=== PATIENT | female | born 1975 | race Caucasian/White ===

== ENCOUNTER 2017-08-28 08:40 | Day surgery (SDC) | payer OTHER ==
[2017-07-27 17:34] VITALS: BMI 30.2
[2017-08-28 10:35] LABS: HEMOGLOBIN 13.6 g/dL (12.0-16.0); MEAN CELL VOLUME 83.2 fl (81.0-99.0); MEAN CORPUSCULAR HEMOGLOBIN 28.7 pg (27.0-31.0); MEAN CORPUSCULAR HGB CONC 34.5 g/dL (33.0-37.0); RBC 4.74 Mil/uL (3.80-5.20); RED CELL DISTRIBUTION WIDTH 13.9 % (11.5-14.5); WHITE BLOOD COUNT 8.1 K/uL (4.8-10.8)
[2017-08-28] MEDS ORDERED: Silver Nitrate Topical - Stick ONE (16:44)
[2017-08-28] MEDS ORDERED: Clindamycin 600mg/50ml NS 600 MG/50 ML BAG IVPB ONE (16:44)
[2017-08-28] MEDS ORDERED: Bupivacaine 0.5% Inj(30mL) ONE (16:44)
[2017-08-28] MEDS ORDERED: Lidocaine 4% (Laryng-O-Jet) Kit MM ONE (16:52)
[2017-08-28] MEDS ORDERED: Propofol 10 mg/ml Inj (20 ML) ONE (16:52)
[2017-08-28] MEDS ORDERED: Succinylcholine 200 mg/10 ml Inj IV ONE ×2 (16:52→16:57)
[2017-08-28] MEDS ORDERED: Midazolam 2 MG/2 ML VIAL ONE (16:52)
[2017-08-28] MEDS ORDERED: Lidocaine 1% 5ml Abboject IV ONE (16:53)
[2017-08-28] MEDS ORDERED: Rocuronium 10 mg/ml (5 ml) ONE (16:55)
[2017-08-28] MEDS ORDERED: Neostigmine 1:1000 (1 mg/ml) Inj ONE (16:57)
[2017-08-28] MEDS ORDERED: Dexamethasone 4 mg/1 ml ONE (16:59)
[2017-08-28] MEDS ORDERED: Lactated Ringer's 1,000 ML IV ONE ×3 (17:38→19:10)
[2017-08-28] MEDS ORDERED: HYDROmorphone 0.5 mg/0.5 ml ISec IVP PRN (19:15)
[2017-08-28] MEDS ORDERED: Oxycodone/Acetaminophen 5/325 mg Tab PO PRN (19:41)
[2017-08-28] MEDS ORDERED: Lactated Ringer's 1,000 ML IV SCH (20:00)
[2017-08-29 00:31] VITALS: BP 123/75; PULSE 94; RESP 20; TEMP 98.9; O2SAT 97
--- NOTE | 2017-09-02 13:48 | PCM.OP ---
Operative Report - Operative Report Date of Surgery/Procedure: 08/28/17 Time of Surgery/Procedure: 14:00 Surgeon: Dr. Tomi Wheatley Audience Coordinator: Dr. Arnol Lemos Anesthesia/Sedation: general/Dr. Ho Pre-Operative Diagnosis: abdominal p[ain and endometriosis Post-Operative Diagnosis: same Indication for Surgery: as above Operative Findings: aas above Procedure/Operation Description: 1-Appendectomy. Breif History: This is a 42 year old woman already brought to the operating room by Dr. Lemos when he requested an intraoperative consultation from general surgery for intestinal involvement. Description of the Procedure: The robotic procedure has already been initated by Dr. Lemos (separate dictation). After taking control of the robotic console the appendix was retracted anteriorly and with monopolar the mesnetery was dessicated with the appendiceal artery. The base was then auxnz8g with multiple 3-0 PDS loop sutures and transected. The specimen was sent to apthology separatetly. The operation was then tunred back to Dr. Lemos ( separate dictation). Estimated Blood Loss: 2 cc Complications: none Specimen: appendix Discharge & Condition: stable
--- NOTE | 2017-09-03 14:21 | OP ---
PROCEDURE DATE: 08/28/2017 PREOPERATIVE DIAGNOSES: Pelvic pain, dysmenorrhea, dyspareunia, and rule out endometriosis. POSTOPERATIVE DIAGNOSES: Pelvic pain, dysmenorrhea, dyspareunia, and rule out endometriosis. PROCEDURE PERFORMED: Cystoscopy with bilateral ureteral catheterization, injection of dye, hysteroscopy diagnostic robotic, da Parag laparoscopy, excision of endometriosis, and bilateral ureterolysis. SURGEON: Arnol Lemos MD FIGURE CLERK: Assisted by Tomi Wheatley MD COMPLICATIONS: None. ESTIMATED BLOOD LOSS: Minimal. SPECIMEN: Samples from left ureteral, left cul-de-sac, right periureteral and anterior rectal endometriosis into samples. INDICATIONS FOR THE PROCEDURE: The patient is a 42-year-old female with a history of endometriosis and multiple procedures. She had persistent symptomatology. She was counseled with regards to risks and benefits of the procedure and she signed the consent and was taken to the operating room. DESCRIPTION OF PROCEDURE: After adequate anesthesia was obtained, the patient was placed in dorsal lithotomy position. She was prepped and draped, the surgeon gotten a glove. Extreme care was make sure the patient, it was padded in any areas prone to compression and that her hips were not either hyperextended or hyperflexed throughout the procedure. At this point, a time out was taken according to hospital policy and the procedure was started. A cystoscope was inserting to the urethra into the bladder. The bladder was distended with 200 mL of clear saline and the bladder was visualized, it appeared to be normal in size with no evidence of tumors or lesions. Both ureteral ostia were in the normal anatomical position. At this point, the left ureteral ostia was cannulated with a 5-Portuguese open-ended catheter all the way to the distal ureter and 5 mL of IC-Green was injected. Similarly, the contralateral size was also catheterized all the way to the distal ureter and 5 mL of IC-Green were also injected. The catheters were removed. The cystoscope was removed and a 16-Portuguese Murrell was inserted into the bladder. At this point, attention was on the vaginal area where a speculum was placed in the vagina. The anterior lip of the cervix was grasped. The cervix was gently dilated and the hysteroscope was inserted into the uterine cavity revealing absence of tumors, fibroids, polyps or any evidence of endometritis. At this point, attention was on the abdomen where an open laparoscopy was performed according standard technique by making incision on the skin and entering the fascia sharply into the peritoneum in a blunt fashion. At this point, a robotic cannula was inserted, the abdomen insufflated, then under direct visualization, three additional port were inserted left upper quadrant, left mid quadrant 5 mm and right upper quadrant. The [employer] robot was then docked according to standard procedure. At this point, the procedure started, the pelvis had clear evidence of inflammatory lesions and hemorrhagic lesions extended throughout the posterior peritoneal cavity. Attention was turned first on the left hand side of the pelvis where the peritoneum was entered and the retroperitoneal space was entered. The left ureter was progressively dissected laterally, endoperitoneal medially excising a large swath of peritoneum that extended from the upper part of the ovarian fossa all the way down to the uterosacral ligament on the left hand side. At this point, attention was on the posterior cul-de-sac where after elevating the uterus, some lesions were identified in the posterior aspect of the cervix as well on the anterior rectal. An incision was made and the rectovaginal space was entered. A progressive dissection was performed, opened the space and identifying an area of peritoneum, which was excised posteriorly from posterior aspect of the cervix extending more anteriorly and laterally all the way up to the uterosacral ligaments both left and right side and both of these were sent to Pathology. At this point, attention was in the right hand side of the pelvis where after identifying the ureter utilizing florescence, the retroperitoneum was entered, progressively dissection was then performed, dissecting the peritoneum from progressively in a step by step fashion all the way from the ovarian fossa, all the way down to the right uterosacral ligament. The sample was then sent to pathology. At this point, we checked for hemostasis that appeared to be excellent. The da Ifinity robot was then undocked, the abdomen was desufflated. The instruments were then removed. The incision was closed in layers with 0 PDS for the fascia and 4-0 Monocryl for the skin. At the end of the procedure, all tapes and instruments counts were correct. The patient tolerated the procedure well and was taken to recovery room in excellent condition. Arnol Lemos MD
== END 2017-08-28 23:55 | disposition home or self-care (01) ==
LOC: H.OPSURG 08:40 → H.PEDS 20:51 → H.OPSURG 23:55
PROVIDERS: ATTEND Obstetrics & Gynecology Reproductive Endocrinology
DX: R10.2 Pelvic and perineal pain (principal); N94.6 Dysmenorrhea, unspecified; N94.10 Unspecified dyspareunia; E03.9 Hypothyroidism, unspecified
CPT/HCPCS: 36415; 58662; 85027; 86850; 86900; 88305; C1729; J0330; J1100; J1170; J2250; J2704; J2710; J2765; J3010; J7030; J7120